=== PATIENT | male | born 1995 | race African-American/Black ===

== ENCOUNTER 2021-07-17 11:02 | Emergency (ER) | payer OTHER ==
[~2021-07-17] VITALS: Ht 177.8 cm; Wt 95.3 kg
[~2021-07-17 11:02] MED LIST: NAPROSYN500 MG PO; VENTOLIN HFA 1818 GM INH
[2021-07-17 11:31] LABS: MCV 85.1 fL (80.0-100.0); RBC 4.82 mil/uL (4.50-6.00); WBC 5.7 thou/uL (4.0-11.0)
[2021-07-17 11:47] LABS: CALCIUM 9.4 mg/dL (8.5-10.1); POTASSIUM 4.2 mmol/L (3.5-5.1)
[2021-07-17 11:59] LABS: ALBUMIN 4.2 g/dL (3.4-5.0); TOTAL PROTEIN 7.3 g/dL (6.4-8.2)
--- NOTE | 2021-07-17 11:59 | EKG ---
[address] [address] ELECTROCARDIOGRAM REPORT Name: JULIET HINDSN Room #: [facility].#: [id number] Admission: Attend Phys: Discharge: Date of : [birth year] Report #: [id number] [facility] ED Test Date: 2021-07-17 Test Time: 11:04:11 Pat Name: JULIET HINDS Department: Room: Gender: [employer]: GARY : 1995 Requested By: Tawanna Chauhan Order Number: [id number] MD: Kaden Olson Measurements Intervals [place] Rate: 70 P: 51 OR: 174 QRS: 34 QRSD: 85 T: 30 QT: 358 QTc: 387 Interpretive Statements Sinus rhythm Atrial premature complex Compared to ECG 12/30/2014 20:56:48 Atrial premature complex(es) now present Electronically Signed On 07-17-2021 11:58:53 [employer] by Kaden Olson [email or web address] <ELECTRONICALLY SIGNED> By: Kaden Olson MD, [facility] 07/17/21 1158 1104 1104 Kaden Olson MD, FACC /EPI
[2021-07-17] MEDS ORDERED: PREDNISONE 20 M20 MG PO (12:08)
[2021-07-17 12:37] VITALS: BP 135/79
== END 2021-07-17 12:39 | disposition home or self-care (01) ==
LOC: ER 11:02
PROVIDERS: Nurse Practitioner Family
DX: R07.89 Other chest pain (principal); J45.909 Unspecified asthma, uncomplicated; F12.90 Cannabis use, unspecified, uncomplicated; Z79.51 Long term (current) use of inhaled steroids; Z79.899 Other long term (current) drug therapy